=== PATIENT | female | born 1970 | race Caucasian/White ===

== ENCOUNTER 2019-09-15 07:36 | Outpatient (RCR) | payer MEDICAID, SELFPAY | END 2019-09-25 00:01 | LOC: LAB 07:36 | PROVIDERS: Family Provider Family Medicine; Visit Provider Nurse Practitioner Family | DX: Z01.89 Encounter for other specified special examinations (principal) | CPT/HCPCS: 36415; 80053; 83036; 84443; 85025 ==

== ENCOUNTER 2019-10-07 10:52 | Outpatient (RCR) | payer MEDICAID, SELFPAY | END 2019-10-26 00:01 | LOC: LAB 10:52 | PROVIDERS: Family Provider Family Medicine; Visit Provider Nurse Practitioner Family | DX: E55.9 Vitamin D deficiency, unspecified (principal); I10 Essential (primary) hypertension; E78.49 Other hyperlipidemia; E03.8 Other specified hypothyroidism | CPT/HCPCS: 36415; 80061; 82306; 82607; 84443 ==

== ENCOUNTER 2019-11-16 10:10 | Outpatient (RCR) | payer MEDICAID, SELFPAY ==
[2019-11-16 11:06] LABS: Anion Gap 15.2 (5-19); Blood Urea Nitrogen 14 mg/dL (6-20); Calcium 9.6 mg/Dl (8.6-10.0); Carbon Dioxide 25 mmol/L (22-29); Chloride 103 mmol/L (98-107); Glomerular Filtration Rate 107.2 mL/min (90-130); Glucose 110 mg/dL (74-109); Potassium 4.2 mmol/L (3.5-5.1); Sodium 139 mmol/L (136-145)
[2019-11-16 11:25] LABS: Basophils % 0.3 %; Eosinophils # 0.1 10^3/uL (0.0-0.8); Eosinophils % 1.8 %; Hematocrit 42.3 % (37.0-47.0); Hemoglobin 13.9 g/dL (11.5-15.3); Lymphocytes # 1.7 10^3/uL (0.8-4.8); Lymphocytes % 44.4 %; Mean Corpuscular HGB Conc 32.9 g/dL (30.0-36.0); Mean Corpuscular Volume 91.2 fL (81-99); Mean Platelet Volume 11.3 fL (7.4-10.4); Monocytes # 0.5 10^3/uL (0.2-0.9); Monocytes % 12.7 %; Neutrophils # 1.6 10^3/uL (1.8-7.7); Neutrophils % 40.5 %; Nucleated Red Blood Cells % 0 %; Platelet Count 183 10^3/cmm (130-400); Red Blood Count 4.64 10^6/uL (4.1-5.3); Red Cell Distribution Width 12.2 % (12.1-15.1); White Blood Count 3.9 10^3/uL (4.0-10.0)
== END 2019-11-26 23:59 | disposition home or self-care (01) ==
LOC: LAB 10:10
PROVIDERS: Family Provider Family Medicine; PCP Family Medicine; Visit Provider Dermatology
DX: G35 Multiple sclerosis (principal); E03.9 Hypothyroidism, unspecified; R73.9 Hyperglycemia, unspecified
CPT/HCPCS: 80048; 85025

== ENCOUNTER → 2019-12-20 11:58 | Outpatient (BNVA) | payer MEDICAID, SELFPAY | PROVIDERS: Family Provider Family Medicine; PCP Family Medicine; Visit Provider Specialist | DX: G35 Multiple sclerosis (principal) | CPT/HCPCS: 99213 ==

== ENCOUNTER → 2021-01-10 12:07 | Outpatient (BNVA) | payer MEDICAID, SELFPAY | PROVIDERS: Family Provider Family Medicine; PCP Family Medicine; Visit Provider Specialist | DX: G35 Multiple sclerosis (principal) | CPT/HCPCS: 99213 ==

== ENCOUNTER 2021-03-08 13:29 | Outpatient (CLI) | payer MEDICAID, SELFPAY ==
--- NOTE | 2021-03-08 13:34 | MM_ITS ---
WS: [id number] BILATERAL SCREENING DIGITAL MAMMOGRAM WITH CAD HISTORY: SCREENING COMPARISON: 02/25/2018 and 09/26/2016 Bilateral CC and MLO views submitted. Computer aided detection analyzed. Breast composition: The breasts are extremely dense, which lowers the sensitivity of mammography. No suspicious masses, microcalcifications or architectural distortion. Benign calcifications in each joaquín ast. MM/[id number] IMPRESSION: BI-RADS: 2-Benign FOLLOW UP: 1 Year Follow-up
== END 2021-03-08 13:30 | disposition home or self-care (01) ==
LOC: RADSHAW 13:33
PROVIDERS: Family Provider Family Medicine; PCP Nurse Practitioner Family; Visit Provider Nurse Practitioner Family
DX: Z12.31 Encounter for screening mammogram for malignant neoplasm of breast (principal)
CPT/HCPCS: 77067

== ENCOUNTER → 2021-08-29 07:59 | Outpatient (BNVA) | payer MEDICAID, SELFPAY | PROVIDERS: Family Provider Family Medicine; PCP Nurse Practitioner Family; Visit Provider Specialist | DX: G35 Multiple sclerosis (principal); Z87.891 Personal history of nicotine dependence | CPT/HCPCS: 99214; 99215 ==

== ENCOUNTER 2021-11-19 10:30 | Outpatient (CLI) | payer MEDICAID, SELFPAY ==
[2021-11-19] VITALS (7 sets, daily range): BP systolic 124–146; BP diastolic 79–92; PULSE 93–109; RESP 18; TEMP 36.3–37.1; O2SAT 92–97
[2021-11-19] MEDS: acetaminophen 500 mg Tablet 1000 MG PO (11:07)
[2021-11-19] MEDS: sodium chloride 0.9% 250 ML 75 ML IV (11:10)
[2021-11-19] MEDS: diphenhydrAMINE 50 mg/mL SDV 1mL 25 MG IV (11:12)
== END 2021-11-19 10:31 | disposition home or self-care (01) ==
LOC: ONCMED 10:35
PROVIDERS: Visit Provider Specialist
DX: G35 Multiple sclerosis (principal)
CPT/HCPCS: 96365; 96366; 96375; J1200; J2350; J2930; J7050

== ENCOUNTER 2021-12-04 09:07 | Outpatient (CLI) | payer MEDICAID, SELFPAY ==
[2021-12-04] VITALS (7 sets, daily range): BP systolic 109–124; BP diastolic 73–80; PULSE 82–96; RESP 18; TEMP 36.3–36.9; O2SAT 95–98
[2021-12-04] MEDS: sodium chloride 0.9% 250 ML 50 ML IV (09:49)
[2021-12-04] MEDS: acetaminophen 500 mg Tablet 1000 MG PO (09:50)
[2021-12-04] MEDS: diphenhydrAMINE 50 mg/mL SDV 1mL 25 MG IV (09:51)
== END 2021-12-04 09:08 | disposition home or self-care (01) ==
PROVIDERS: Referring Provider Specialist; Visit Provider Specialist
DX: G35 Multiple sclerosis (principal)
CPT/HCPCS: 96365; 96366; 96375; J1200; J2350; J2930; J7050

== ENCOUNTER → 2022-01-09 13:32 | Outpatient (BNVA) | payer MEDICAID, SELFPAY | PROVIDERS: PCP Nurse Practitioner Family; Visit Provider Specialist | DX: G35 Multiple sclerosis (principal); Z87.891 Personal history of nicotine dependence | CPT/HCPCS: 99213; 99214 ==

== ENCOUNTER 2022-04-04 12:36 | Outpatient (CLI) | payer MEDICAID, SELFPAY ==
--- NOTE | 2022-04-04 12:47 | MM_ITS ---
WS: [id number] BILATERAL 3D TOMOSYNTHESIS DIGITAL SCREENING MAMMOGRAPHY WITH CAD CLINICAL INFORMATION: SCREENING Z12.31 HISTORY: Screening mammogram. No current complaints. COMPARISON: March 08, 2021 TECHNIQUE: Bilateral CC and MLO views. FINDINGS: The breasts are composed of heterogeneous fibroglandular density tissue, which can limit the detectio n of small underlying mass lesions. A few incidental punctate calcifications. Eggshell calcifications . No suspicious mass, asymmetry, calcifications, or architectural distortion. No evidence of malignan cy. MM/[place] [id number] IMPRESSION: BI-RADS: 2-Benign FOLLOW UP: 1 Year Follow-up Recommend return to annual screening mammography.
--- NOTE | 2022-05-20 11:27 | PC.NURSE ---
Pt to infusion suite on 05/20/2022 for Ocrevus infusion. Preauthorization not complete yet, and per Dr. Avery's office, infusion rescheduled for 06/03/2022. Pt was made aware of this, and voiced understanding. dh
== END 2022-04-04 12:37 | disposition home or self-care (01) ==
LOC: RAD 12:39
PROVIDERS: PCP Nurse Practitioner Family; Visit Provider Nurse Practitioner Family
DX: Z12.31 Encounter for screening mammogram for malignant neoplasm of breast (principal)
CPT/HCPCS: 77063; 77067

== ENCOUNTER 2022-06-03 09:25 | Outpatient (CLI) | payer MEDICAID, SELFPAY ==
[2022-06-03 09:45] VITALS: BP 132/82; PULSE 89; RESP 18; TEMP 36.9; O2SAT 97
[2022-06-03] MEDS: sodium chloride 0.9% 250 ML 50 ML IV (09:57)
[2022-06-03] MEDS: acetaminophen 500 mg Tablet 1000 MG PO (09:57)
[2022-06-03] MEDS: diphenhydrAMINE 50 mg/mL SDV 1mL 25 MG IVP (09:58)
[2022-06-03 10:35] VITALS: BP 123/81; PULSE 74; RESP 18; TEMP 36.7; O2SAT 96
[2022-06-03 11:26] VITALS: BP 126/78; PULSE 82; RESP 18; TEMP 36.7; O2SAT 96
[2022-06-03 13:06] VITALS: BP 150/97; PULSE 85; RESP 18; TEMP 36.9; O2SAT 98
== END 2022-06-03 09:26 | disposition home or self-care (01) ==
PROVIDERS: PCP Nurse Practitioner Family; Referring Provider Specialist; Visit Provider Specialist
DX: G35 Multiple sclerosis (principal)
CPT/HCPCS: 96365; 96366; 96375; J1200; J2350; J2930; J7040; J7050

== ENCOUNTER → 2022-07-16 10:38 | Outpatient (BNVA) | payer MEDICAID, SELFPAY | PROVIDERS: PCP Nurse Practitioner Family; Referring Provider Specialist; Visit Provider Specialist | DX: G35 Multiple sclerosis (principal) | CPT/HCPCS: G0463 ==

== ENCOUNTER → 2022-07-29 10:48 | Outpatient (BNVA) | payer MEDICAID, SELFPAY | PROVIDERS: PCP Nurse Practitioner Family; Visit Provider Specialist | DX: G35 Multiple sclerosis (principal) | CPT/HCPCS: 99214 ==

== ENCOUNTER 2022-12-02 09:41 | Outpatient (CLI) | payer MEDICAID, SELFPAY ==
[2022-12-02 09:58] VITALS: BP 121/63; PULSE 86; RESP 18; TEMP 37; O2SAT 97
[2022-12-02] MEDS: sodium chloride 0.9% 250 ML 50 ML IV (10:33)
[2022-12-02] MEDS: diphenhydrAMINE 50 mg/mL SDV 1mL 25 MG IVP (10:34)
[2022-12-02 11:10] VITALS: BP 115/67; PULSE 78; RESP 18; TEMP 36.8; O2SAT 97
[2022-12-02 12:04] VITALS: BP 112/72; PULSE 77; RESP 18; TEMP 36.6; O2SAT 98
[2022-12-02 13:45] VITALS: BP 120/76; PULSE 94; RESP 18; TEMP 36.9; O2SAT 98
== END 2022-12-02 09:42 | disposition home or self-care (01) ==
LOC: ONCMED 09:41
PROVIDERS: PCP Nurse Practitioner Family; Visit Provider Specialist
DX: G35 Multiple sclerosis (principal)
CPT/HCPCS: 96365; 96366; 96375; A4222; J1200; J2350; J2930; J7040; J7050

== ENCOUNTER → 2023-02-26 10:46 | Outpatient (BNVA) | payer MEDICAID, SELFPAY | PROVIDERS: PCP Nurse Practitioner Family; Visit Provider Specialist | DX: G35 Multiple sclerosis (principal); Z79.899 Other long term (current) drug therapy | CPT/HCPCS: 99213 ==

== ENCOUNTER 2023-04-18 11:23 | Outpatient (CLI) | payer MEDICAID, SELFPAY ==
--- NOTE | 2023-04-18 11:28 | MM_ITS ---
WS: [id number] BILATERAL 3D TOMOSYNTHESIS DIGITAL SCREENING MAMMOGRAPHY WITH CAD CLINICAL INFORMATION: SCREENING HISTORY: Screening mammogram. No current complaints. COMPARISON: April 04, 2022 TECHNIQUE: Bilateral CC and MLO views. FINDINGS: The breasts are composed of heterogeneous fibroglandular density tissue, which can limit the detectio n of small underlying mass lesions. No suspicious mass, asymmetry, calcifications, or architectural d istortion. No evidence of malignancy. A few incidental punctate calcifications. A few eggshell calcif ications. MM/[place] [id number] IMPRESSION: BI-RADS: 2-Benign FOLLOW UP: 1 Year Follow-up Recommend return to annual screening mammography.
== END 2023-04-18 11:24 | disposition home or self-care (01) ==
PROVIDERS: PCP Nurse Practitioner Family; Visit Provider Nurse Practitioner Family
DX: Z12.31 Encounter for screening mammogram for malignant neoplasm of breast (principal)
CPT/HCPCS: 77063; 77067

== ENCOUNTER 2023-06-04 08:08 | Oncology outpatient (recurring) (ONCR) | payer MEDICAID, SELFPAY ==
[2023-06-04 08:40] VITALS: BP 117/75; PULSE 85; RESP 16; TEMP 36.5; O2SAT 96
[2023-06-04] MEDS: sodium chloride 0.9% 250 ML 75 ML IV (08:51)
[2023-06-04] MEDS: diphenhydrAMINE 50 mg/mL SDV 1mL 25 MG IVP (08:51)
[2023-06-04] MEDS: methylPREDNISolone sod succ 125 mg SDV IVP (08:52)
[2023-06-04 09:40] VITALS: BP 117/78; PULSE 81; RESP 16; TEMP 36.8; O2SAT 96
[2023-06-04] MEDS: ocrelizumab 600 MG in sodium chloride 0.9% 500 ML 100 MG IV (09:40)
[2023-06-04 09:55] VITALS: BP 125/78; PULSE 84; RESP 17; TEMP 36.7; O2SAT 95
[2023-06-04 10:10] VITALS: BP 107/71; PULSE 88; RESP 16; TEMP 36.9; O2SAT 94
[2023-06-04 10:40] VITALS: BP 120/73; PULSE 88; RESP 17; TEMP 36.5; O2SAT 95
[2023-06-04 12:00] VITALS: BP 112/71; PULSE 96; RESP 16; TEMP 36.6; O2SAT 94
== END 2023-06-04 23:59 | disposition home or self-care (01) ==
PROVIDERS: PCP Nurse Practitioner Family; Visit Provider Specialist
DX: G35 Multiple sclerosis (principal)
CPT/HCPCS: 96375; 96413; 96415; J1200; J2350; J2930; J7040; J7050

== ENCOUNTER 2023-12-11 08:31 | Oncology outpatient (recurring) (ONCR) | payer MEDICAID, SELFPAY ==
[2023-12-11 08:57] VITALS: BP 133/85; PULSE 89; RESP 16; TEMP 36.4; O2SAT 94
[2023-12-11] MEDS: sodium chloride 0.9% 250 ML 75 ML IV (09:39)
[2023-12-11] MEDS: diphenhydrAMINE 50 mg/mL SDV 1mL 25 MG IVP (09:39)
[2023-12-11 10:00] VITALS: BP 122/79; PULSE 75; RESP 16; TEMP 36.8; O2SAT 97
[2023-12-11] MEDS: ocrelizumab 600 MG in sodium chloride 0.9% 500 ML 100 MG IV (10:00)
[2023-12-11 10:15] VITALS: BP 123/81; PULSE 76; RESP 16; TEMP 36.6; O2SAT 97
[2023-12-11 10:30] VITALS: BP 117/87; PULSE 77; RESP 16; TEMP 36.8; O2SAT 98
[2023-12-11 11:00] VITALS: BP 135/83; PULSE 78; RESP 16; TEMP 36.7; O2SAT 99
[2023-12-11 12:45] VITALS: BP 125/82; PULSE 82; RESP 17; TEMP 36.6; O2SAT 97
== END 2023-12-11 23:59 | disposition home or self-care (01) ==
PROVIDERS: PCP Nurse Practitioner Family; Visit Provider Specialist
DX: G35 Multiple sclerosis (principal)
CPT/HCPCS: 96367; 96413; 96415; J1200; J2350; J7040; J7050

== ENCOUNTER → 2024-01-09 15:48 | Outpatient (BNVA) | payer MEDICAID, SELFPAY | PROVIDERS: PCP Nurse Practitioner Family; Visit Provider Specialist | DX: G35 Multiple sclerosis (principal) | CPT/HCPCS: 99213 ==

== ENCOUNTER 2024-04-19 13:51 | Oncology outpatient (recurring) (ONCR) | payer MEDICAID, SELFPAY ==
--- NOTE | 2024-04-19 13:53 | MM_ITS ---
WS: [id number] BILATERAL 3D TOMOSYNTHESIS DIGITAL SCREENING MAMMOGRAPHY WITH CAD CLINICAL INFORMATION: SCREENING HISTORY: Screening mammogram. No current complaints. COMPARISON: 2022 TECHNIQUE: Bilateral CC and MLO views. FINDINGS: The breasts are composed of heterogeneous fibroglandular density tissue, which can limit the detectio n of small underlying mass lesions. No suspicious mass, asymmetry, calcifications, or architectural d istortion. No evidence of malignancy. A few incidental punctate and lucent centered calcifications. MM/[place] [id number] IMPRESSION: BI-RADS: 2-Benign FOLLOW UP: 1 Year Follow-up Recommend return to annual screening mammography.
== END 2024-04-25 23:59 | disposition home or self-care (01) ==
LOC: ONCMED 13:51 → RAD 13:52 → ONCMED 05-11 07:22
PROVIDERS: PCP Nurse Practitioner Family; Visit Provider Nurse Practitioner Family
DX: Z12.31 Encounter for screening mammogram for malignant neoplasm of breast (principal); R92.323 Mammographic fibroglandular density, bilateral breasts
CPT/HCPCS: 77063; 77067

== ENCOUNTER 2024-06-15 08:53 | Oncology outpatient (recurring) (ONCR) | payer MEDICAID, SELFPAY ==
[2024-06-15 09:18] VITALS: BP 111/72; PULSE 78; RESP 16; TEMP 36.4; O2SAT 96
[2024-06-15] MEDS: sodium chloride 0.9% 250 ML 75 ML IV (09:52)
[2024-06-15] MEDS: diphenhydrAMINE 50 mg/mL SDV 1mL 25 MG IVP (09:56)
[2024-06-15] MEDS: acetaminophen 500 mg Tablet 1000 MG PO (09:57)
[2024-06-15 10:43] VITALS: BP 104/68; PULSE 79; RESP 16; TEMP 36.6; O2SAT 99
[2024-06-15] MEDS: ocrelizumab 600 MG in sodium chloride 0.9% 500 ML 100 MG IV (10:43)
[2024-06-15 10:58] VITALS: BP 110/64; PULSE 76; RESP 16; TEMP 36.6; O2SAT 98
[2024-06-15 11:15] VITALS: BP 117/59; PULSE 79; RESP 16; TEMP 36.5; O2SAT 97
[2024-06-15 11:45] VITALS: BP 105/61; PULSE 76; RESP 16; TEMP 36.2; O2SAT 95
[2024-06-15 13:10] VITALS: BP 123/78; PULSE 77; RESP 16; TEMP 36.6; O2SAT 99
== END 2024-06-15 23:59 | disposition home or self-care (01) ==
PROVIDERS: PCP Nurse Practitioner Family; Visit Provider Specialist
DX: Z79.899 Other long term (current) drug therapy (principal); G35 Multiple sclerosis
CPT/HCPCS: 96375; 96413; 96415; A4222; J1200; J2350; J7040; J7050

== ENCOUNTER 2024-12-21 10:05 | Oncology outpatient (recurring) (ONCR) | payer MEDICAID, SELFPAY ==
[2024-12-21] MEDS: acetaminophen 500 mg Tablet 1000 MG PO (11:50)
[2024-12-21] MEDS: sodium chloride 0.9% 250 ML 75 ML IV (11:53)
[2024-12-21] MEDS: diphenhydrAMINE 50 mg/mL SDV 1mL 25 MG IVP (11:57)
[2024-12-21 12:45] VITALS: BP 119/76; PULSE 72; RESP 17; TEMP 36.8; O2SAT 98
[2024-12-21] MEDS: ocrelizumab 600 MG in sodium chloride 0.9% 500 ML 100 MG IV (12:49)
[2024-12-21 13:00] VITALS: BP 119/77; PULSE 95; RESP 16; TEMP 36.7; O2SAT 95
[2024-12-21 13:20] VITALS: BP 105/66; PULSE 81; RESP 17; TEMP 36.9; O2SAT 95
[2024-12-21 13:50] VITALS: BP 107/67; PULSE 83; RESP 16; TEMP 37.1; O2SAT 97
[2024-12-21 16:24] VITALS: BP 107/67; PULSE 83; RESP 16; TEMP 37.1; O2SAT 97
== END 2024-12-21 23:59 | disposition home or self-care (01) ==
LOC: ONCMED 10:06
PROVIDERS: PCP Nurse Practitioner Family; Visit Provider Specialist
DX: G35 Multiple sclerosis (principal); Z79.899 Other long term (current) drug therapy
CPT/HCPCS: 96375; 96413; 96415; A4222; J1200; J2350; J7040; J7050

== ENCOUNTER → 2025-01-04 09:55 | Outpatient (BNVA) | payer MEDICAID, SELFPAY | PROVIDERS: PCP Nurse Practitioner Family; Visit Provider Specialist | DX: G35 Multiple sclerosis (principal) | CPT/HCPCS: 99213 ==

== ENCOUNTER 2025-06-20 09:37 | Oncology outpatient (recurring) (ONCR) | payer MEDICAID, SELFPAY ==
[2025-06-20] MEDS: diphenhydrAMINE 50 mg/mL SDV 1mL 25 MG IVP (11:40)
[2025-06-20 15:28] VITALS: BP 106/71; PULSE 78; RESP 16; TEMP 36.6; O2SAT 96
== END 2025-06-20 23:59 | disposition home or self-care (01) ==
PROVIDERS: PCP Nurse Practitioner Family; Visit Provider Specialist
DX: G35 Multiple sclerosis (principal); Z79.899 Other long term (current) drug therapy
CPT/HCPCS: 96375; 96413; 96415; A4222; J1200; J2350; J7040; J7050; J9999

== ENCOUNTER 2025-06-30 13:13 | Outpatient (CLI) | payer MEDICAID, SELFPAY ==
--- NOTE | 2025-06-30 13:19 | MM_ITS ---
WS: [id number] BILATERAL SCREENING DIGITAL TOMOSYNTHESIS MAMMOGRAM WITH CAD HISTORY: SCREENING COMPARISON: 04/19/2024, 04/18/2023 Bilateral CC and MLO views with tomosynthesis and synthetic mammography submitted. Computer aided detection analyzed. Breast composition: The breasts are heterogeneously dense, which may obscure small masses. No suspicious masses, microcalcifications or architectural distortion. Benign calcifications. Asymmetries are stable within each breast. MM/MM scr tomosynthesis [id number] IMPRESSION: BI-RADS: 2 - Benign FOLLOW UP: 1 Year Follow-up
== END 2025-06-30 13:14 | disposition home or self-care (01) ==
LOC: RAD 13:15
PROVIDERS: PCP Nurse Practitioner Adult Health; Visit Provider Electrodiagnostic Medicine
DX: Z12.31 Encounter for screening mammogram for malignant neoplasm of breast (principal); R92.333 Mammographic heterogeneous density, bilateral breasts; R92.1 Mammographic calcification found on diagnostic imaging of breast; N64.89 Other specified disorders of breast
CPT/HCPCS: 77063; 77067